=== PATIENT | male | born 1950 ===

== ENCOUNTER 2023-11-12 09:15 | Inpatient (IN) | payer OTHER ==
[~2023-11-12] VITALS: Ht 160 cm; Wt 56.7 kg
[2023-11-12 09:15] LABS: PH,URINE 5.5 (5.0-8.0); URINE APPEARANCE Clear; URINE BILIRRUBIN Negative (NEGATIVE); URINE BLOOD Negative; URINE COLOR Yellow; URINE GLUCOSE Negative (NEGATIVE); URINE KETONE Negative (NEGATIVE); URINE LEUKOCYTE Negative; URINE NITRATE Negative; URINE PROTEIN Negative (NEGATIVE); URINE UROBILINOGEN 0.2 E.U./dl
[2023-11-12 09:20] LABS: URINE BACTERIA 6.2 uL (0.0-1933)
[2023-11-12 09:26] LABS: HEMOGLOBIN 15.8 g/dL (13-16.00); MEAN CELL VOLUME 83.6 fL (80.0-100.00); MEAN CORPUSCULAR HEMOGLOBIN 28.1 pg (27.00-32.0); MEAN CORPUSCULAR HGB CONC 33.6 g/dl (32.0-36.0); PLATELET COUNT 237 K/uL (150-450); RED BLOOD COUNT 5.62 M/uL (4.00-6.00); RED CELL DISTRIBUTION WIDTH 14.5 % (11.5-14.5)
[2023-11-12 09:30] LABS: URINE EPITHELIAL CELLS 1.2 uL (0.0-38.8); URINE RBC 0.4 uL (0.0-20.8); URINE WBC 0 uL (0.0-23.2)
[2023-11-12 10:14] LABS: PARTIAL THROMBOPLASTIN TIME 26.8 SECONDS (22.0-34.0); PROTHROMBIN TIME 10.9 SECONDS (9.0-11.5)
[2023-11-12 10:31] LABS: ALBUMIN 3.9 gm/dL (3.4-5.0); BILIRUBIN TOTAL 0.41 mg/dL (0.3-1.2); CALCIUM 9.3 mg/dL (8.5-10.1); CREATININE SERUM 0.8 mg/dL (0.70-1.30); GFR 94.5; GLOBULINA 3.1 G/DL (2.4-3.5); POTASSIUM 4.55 mEq/L (3.5-5.1)
[2023-11-19] MEDS ORDERED: LIDOCAINE HCL 1%/EPINEPHRINE 20ML VIAL IJ ONE (06:54)
[2023-11-19] MEDS ORDERED: BUPIVACAINE HCL/MPF 0.5% 30ML VIAL ONE (06:54)
[2023-11-19] MEDS ORDERED: METRONIDAZOLE/SODIUM CHLORIDE 500 MG/100 ML PIGGYBACK IV ONE ×3 (06:56→13:29)
[2023-11-19] MEDS ORDERED: CEFTRIAXONE SODIUM 2,000 MG VIAL ONE (06:56)
[2023-11-19] MEDS ORDERED: CHLORHEXIDINE GLUCONATE 120 ML BOTTLE TOP ONE (06:57)
[2023-11-19] MEDS ORDERED: RINGERS SOLUTION,LACTATED 1,000 ML IV SCH (08:00)
[2023-11-19] MEDS ORDERED: MORPHINE SULFATE 4 MG/ML CARTRIDGE IV PRN (08:00)
[2023-11-19] MEDS ORDERED: OxyCODONE HCL 5 MG TABLET (ROXICODONE) PO PRN (08:00)
[2023-11-19] MEDS ORDERED: ONDANSETRON HCL 2 MG/ML VIAL IV PRN (08:00)
[2023-11-19] MEDS ORDERED: DEXTROSE 50 % IN WATER 0.5 G/ML DISP.SYRIN IV PRN (08:00)
[2023-11-19] MEDS ORDERED: ACETAMINOPHEN 500 MG GEL..CAP PO SCH (08:00)
[2023-11-19] MEDS ORDERED: CEFTRIAXONE SODIUM 2,000 MG VIAL IV ONE (08:45)
[2023-11-19] MEDS ORDERED: FAMOTIDINE/PF 20 MG/2 ML VIAL IV PUSH SCH (09:00)
[2023-11-19] MEDS ORDERED: HYOSCYAMINE SULFATE 0.125 MG TAB.SUBL SL SCH (09:00)
[2023-11-19] MEDS ORDERED: METOCLOPRAMIDE HCL 5 MG/ML VIAL IV SCH (09:00)
[2023-11-19] MEDS ORDERED: GABAPENTIN 300 MG CAPSULE PO SCH (09:00)
[2023-11-19] MEDS ORDERED: CIPROFLOXACIN IN 5 % DEXTROSE 400 MG/200 ML PIGGYBAG IV SCH (09:00)
[2023-11-19] MEDS ORDERED: LACTULOSE 20 G/30 ML BLIST.PACK PO SCH (09:00)
[2023-11-19] MEDS ORDERED: METRONIDAZOLE/SODIUM CHLORIDE 500 MG/100 ML PIGGYBACK IV SCH (09:00)
[2023-11-19] MEDS ORDERED: MORPHINE SULFATE 4 MG/ML VIAL IV ONE ×2 (11:45→13:20)
[2023-11-19] MEDS ORDERED: METOCLOPRAMIDE HCL 5 MG/ML VIAL ONE (13:28)
[2023-11-19] MEDS ORDERED: FAMOTIDINE/PF 20 MG/2 ML VIAL ONE (13:29)
[2023-11-19 14:52] LABS: HEMATOCRIT 47.3 % (39.0-48.0); HEMOGLOBIN 15.2 g/dL (13-16.00); MEAN CELL VOLUME 85.2 fL (80.0-100.00); MEAN CORPUSCULAR HEMOGLOBIN 27.3 pg (27.00-32.0); MEAN CORPUSCULAR HGB CONC 32.1 g/dl (32.0-36.0); PLATELET COUNT 252 K/uL (150-450); RED BLOOD COUNT 5.55 M/uL (4.00-6.00); RED CELL DISTRIBUTION WIDTH 14.8 % (11.5-14.5)
[2023-11-19 15:14] LABS: ALBUMIN 3.4 gm/dL (3.4-5.0); CALCIUM 8.9 mg/dL (8.5-10.1); CREATININE SERUM 0.88 mg/dL (0.70-1.30); GFR 84.65; MAGNESIUM 1.5 mg/dL (1.8-2.4); PHOSPHOROUS 3.4 mg/dL (2.5-4.9); POTASSIUM 3.83 mEq/L (3.5-5.1)
[2023-11-19] MEDS ORDERED: CELECOXIB 200 MG CAPSULE PO SCH (17:00)
[2023-11-19] MEDS ORDERED: POLYETHYLENE GLYCOL 3350 17 GM BLIST.PACK PO SCH (17:00)
[2023-11-19 17:57] VITALS: BP 110/70; O2SAT 96
[2023-11-20 00:56] VITALS: BP 115/57; O2SAT 97
[2023-11-20 07:37] LABS: HEMOGLOBIN 13.4 g/dL (13-16.00); MEAN CELL VOLUME 81.2 fL (80.0-100.00); MEAN CORPUSCULAR HGB CONC 34.4 g/dl (32.0-36.0); PLATELET COUNT 187 K/uL (150-450); RED CELL DISTRIBUTION WIDTH 14.4 % (11.5-14.5)
[2023-11-20 08:14] LABS: ALBUMIN 2.7 gm/dL (3.4-5.0); CALCIUM 8.1 mg/dL (8.5-10.1); CREATININE SERUM 0.73 mg/dL (0.70-1.30); GFR 105.03; MAGNESIUM 1.6 mg/dL (1.8-2.4); POTASSIUM 3.54 mEq/L (3.5-5.1)
[2023-11-20 08:28] LABS: PHOSPHOROUS 1.9 mg/dL (2.5-4.9)
[2023-11-20 10:11] VITALS: BP 113/69; O2SAT 87
[2023-11-20] MEDS ORDERED: POTASSIUM PHOS,M-BASIC-D-BASIC 15 MM in 0.9 % SODIUM CHLORIDE 250 ML IV ONE (11:00)
[2023-11-20 16:52] VITALS: BP 115/70; O2SAT 98
[2023-11-20] MEDS ORDERED: ENOXAPARIN SODIUM 40 MG/0.4 ML SYRINGE SUBCUTANEO SCH (17:00)
[2023-11-21 00:55] VITALS: BP 106/71; O2SAT 96
[2023-11-21 07:49] LABS: HEMATOCRIT 48.1 % (39.0-48.0); HEMOGLOBIN 16.4 g/dL (13-16.00); MEAN CELL VOLUME 83.6 fL (80.0-100.00); MEAN CORPUSCULAR HEMOGLOBIN 28.5 pg (27.00-32.0); MEAN CORPUSCULAR HGB CONC 34.1 g/dl (32.0-36.0); PLATELET COUNT 236 K/uL (150-450); RED BLOOD COUNT 5.76 M/uL (4.00-6.00); RED CELL DISTRIBUTION WIDTH 14.3 % (11.5-14.5)
[2023-11-21 08:00] VITALS: BP 118/72; O2SAT 97
[2023-11-21 08:31] LABS: BILIRUBIN TOTAL 0.67 mg/dL (0.3-1.2); CREATININE SERUM 0.72 mg/dL (0.70-1.30); GFR 106.71; GLOBULINA 3.2 G/DL (2.4-3.5); MAGNESIUM 2.1 mg/dL (1.8-2.4); PHOSPHOROUS 2.6 mg/dL (2.5-4.9); POTASSIUM 3.79 mEq/L (3.5-5.1); TOTAL PROTEIN 6.2 gm/dL (6.4-8.2)
[2023-11-21] MEDS ORDERED: ENOXAPARIN SODIUM 40 MG/0.4 ML SYRINGE SUBCUTANEO SCH (09:00)
[2023-11-21] MEDS ORDERED: FINASTERIDE 5 MG TABLET PO SCH (09:00)
[2023-11-21] MEDS ORDERED: TAMSULOSIN HCL 0.4 MG CAP PO SCH (09:00)
[2023-11-21 16:52] VITALS: BP 109/76; O2SAT 98
[2023-11-22] VITALS: BP 98/61; O2SAT 98
[2023-11-22 09:36] VITALS: BP 118/78; O2SAT 97
[2023-11-22] MEDS ORDERED: LACTULOSE 20 G/30 ML BLIST.PACK PO NR (10:12)
[2023-11-22] MEDS ORDERED: MAGNESIUM HYDROXIDE 30 ML BLIST.PACK PO NR (10:15)
[2023-11-22] MEDS ORDERED: MINERAL OIL 30 ML BLIST.PACK PO NR (10:15)
[2023-11-23] VITALS: BP 124/60; O2SAT 95
[2023-11-23 07:50] LABS: HEMATOCRIT 37.2 % (39.0-48.0); HEMOGLOBIN 12.9 g/dL (13-16.00); MEAN CELL VOLUME 80.9 fL (80.0-100.00); MEAN CORPUSCULAR HEMOGLOBIN 27.9 pg (27.00-32.0); MEAN CORPUSCULAR HGB CONC 34.5 g/dl (32.0-36.0); PLATELET COUNT 200 K/uL (150-450); RED CELL DISTRIBUTION WIDTH 14.2 % (11.5-14.5)
[2023-11-23 08:35] LABS: ALBUMIN 2.4 gm/dL (3.4-5.0); BILIRUBIN TOTAL 0.48 mg/dL (0.3-1.2); CALCIUM 8.3 mg/dL (8.5-10.1); CREATININE SERUM 0.53 mg/dL (0.70-1.30); GFR 151.97; GLOBULINA 3.2 G/DL (2.4-3.5); MAGNESIUM 2.1 mg/dL (1.8-2.4); POTASSIUM 3.38 mEq/L (3.5-5.1); TOTAL PROTEIN 5.6 gm/dL (6.4-8.2)
[2023-11-23 09:54] VITALS: BP 138/65; O2SAT 98
[2023-11-23] MEDS ORDERED: HYOSCYAMINE0.125 M1 SL (11:19)
[2023-11-23] MEDS ORDERED: INTESTINEX680 M1 PO (11:20)
== END 2023-11-23 12:43 | disposition home or self-care (01) | DRG 330 ==
LOC: O/R 11-19 05:19 → SURH 11-19 09:15
PROVIDERS: Surgery; ADMIT Colon & Rectal Surgery; ATTEND Colon & Rectal Surgery
PROC: 07BB4ZZ Excision of Mesenteric Lymphatic, Percutaneous Endoscopic Approach (ICD-10-PCS; 2023-11-19)
PROC: 0DTF4ZZ Resection of Right Large Intestine, Percutaneous Endoscopic Approach (ICD-10-PCS; principal; 2023-11-19 11:45)
DX: C18.0 Malignant neoplasm of cecum (principal); K56.7 Ileus, unspecified; K92.2 Gastrointestinal hemorrhage, unspecified; K91.89 Other postprocedural complications and disorders of digestive system; K62.7 Radiation proctitis; R59.0 Localized enlarged lymph nodes